=== PATIENT | female | born 1995 | race Hispanic/Latino ===

== ENCOUNTER 2023-06-09 03:47 | Day surgery (SDC) | payer MEDICAID, OTHER ==
[2023-06-09 04:15] VITALS: BMI 27.3
[2023-06-09] MEDS ORDERED: hydrALAZINE 20 MG/ML VIAL SLOW IVP PRN (04:50)
== END 2023-06-09 06:04 | disposition home or self-care (01) ==
LOC: CSHLD/OP 03:47
PROVIDERS: ATTEND Family Medicine
DX: O36.8130 Decreased fetal movements, third trimester, not applicable or unspecified (principal); O99.613 Diseases of the digestive system complicating pregnancy, third trimester; K08.89 Other specified disorders of teeth and supporting structures; Z79.899 Other long term (current) drug therapy; Z3A.34 34 weeks gestation of pregnancy
CPT/HCPCS: 99282

== ENCOUNTER 2023-07-14 21:54 | Day surgery (SDC) | payer OTHER ==
[2023-07-14 22:27] VITALS: BMI 29.2
[2023-07-14] MEDS ORDERED: hydrALAZINE 20 MG/ML VIAL SLOW IVP PRN (22:28)
[2023-07-14] MEDS ORDERED: Promethazine HCl 25 MG/ML VIAL IM SCH (23:15)
[2023-07-14] MEDS ORDERED: Morphine 4 MG/ML VIAL IM SCH (23:15)
[2023-07-14 23:22] LABS: Bilirubin Neg (Negative); Blood, Urine 10 (Negative); Clarity Clear (Clear); Glucose, Urine (Dipstick) Normal (Negative); Ketone, Urine Negative (Negative); Leukocyte Negative (Negative); Nitrite Negative (Negative); Protein, Urine (Dipstick) Negative (Neg-Trace); Urobilinogen Normal mg/dL (Less than 2)
[2023-07-14 23:29] LABS: Bacteria/HPF None Seen HPF (None Seen); CAUTI Indications for Culture Pregnancy; RBC/HPF 0-3 HPF (0-3); Squamous Epithelial 0-3 HPF (0-3); WBC/HPF 0-3 HPF (0-3)
[2023-07-14 23:30] LABS: Urine Culture Reflex Yes Yes
[2023-07-15 00:43] LABS: Albumin 3.2 g/dL (3.5-5.0); Alkaline Phosphatase 129 U/L (40-110); Anion Gap 15 mmol/L (10-20); BUN (Urea Nitrogen) 8 mg/dL (7.0-18.7); Bilirubin, Total 0.3 mg/dL (0.2-1.2); Calc. Creatinine Clearance 184 mL/min (70-130); Calcium 8.7 mg/dL (7.8-10.44); Carbon Dioxide 18 mmol/L (22-29); Chloride 101 mmol/L (98-107); Estimated GFR 132; Globulin 4.9 g/dL (2.4-3.5); Glucose 74 mg/dL (70-105); Potassium 3.7 mmol/L (3.5-5.1); Protein, Total 8.1 g/dL (6.0-8.3); Sodium 130 mmol/L (136-145)
[2023-07-15 01:06] LABS: #Eosinphils 0.1 10x3/uL (0.0-0.5); #Monocytes 0.9 10x3/uL (0.0-1.1); #Neutrophils 7.6 10x3/uL (1.5-8.4); %Basophils 0.2 % (0.0-2.0); %Eosinophils 0.9 % (0.0-6.0); %Lymphocytes 11.2 % (18.0-47.0); %Monocytes 9.2 % (0.0-10.0); %Neutrophils 78.3 % (40.0-75.0); Mean Platelet Volume 11.9 fl (7.4-10.4); Platelet Count 197 10x3/uL (150-450)
[2023-07-15 01:08] LABS: White Blood Cell (WBC) Count 9.7 10x3/uL (3.5-10.5)
[2023-07-15 02:07] LABS: Mean Corpuscular HGB CONC 36.1 g/dL (32.0-36.0); Mean Corpuscular Hemoglobin 31.7 pg (27.0-33.0); Mean Corpuscular Volume 87.8 fl (81.6-98.3)
[2023-07-15 02:14] LABS: Hematocrit 29.4 % (34.9-44.5); Hemoglobin 9.8 g/dL (12.0-15.5)
[2023-07-15 02:26] LABS: AST (SGOT) 13 U/L (5-34)
[2023-07-15 02:50] LABS: ALT (SGPT) 7 U/L (8-55)
== END 2023-07-15 01:35 | disposition home or self-care (01) ==
LOC: CSHLD/OP 21:54
PROVIDERS: ATTEND Family Medicine
DX: O47.1 False labor at or after 37 completed weeks of gestation (principal); O09.893 Supervision of other high risk pregnancies, third trimester; O99.513 Diseases of the respiratory system complicating pregnancy, third trimester; J45.909 Unspecified asthma, uncomplicated; O34.211 Maternal care for low transverse scar from previous cesarean delivery; Z87.59 Personal history of other complications of pregnancy, childbirth and the puerperium; Z3A.38 38 weeks gestation of pregnancy; Z79.899 Other long term (current) drug therapy
CPT/HCPCS: 36415; 80053; 81001; 82570; 84156; 85025; 87086; J2270; J2550

== ENCOUNTER 2023-07-15 11:01 | Inpatient (IN) | payer OTHER ==
[2023-07-15 11:26] VITALS: BMI 29.2
[2023-07-15] MEDS ORDERED: hydrALAZINE 20 MG/ML VIAL SLOW IVP PRN ×3 (12:01→21:38)
[2023-07-15] MEDS ORDERED: Lactated Ringer's 1,000 ML IV SCH ×2 (12:15→14:00)
[2023-07-15] MEDS ORDERED: Cyclobenzaprine 10 MG TAB PO SCH (13:00)
[2023-07-15] MEDS ORDERED: fentaNYL 50 mcg/mL 1 mL Vial SLOW IVP SCH (13:00)
[2023-07-15] MEDS ORDERED: Acetaminophen 500 MG TAB PO PRN (13:54)
[2023-07-15] MEDS ORDERED: Ondansetron PF 4 MG/2 ML Vial IVP PRN ×2 (13:54→16:48)
[2023-07-15] MEDS ORDERED: Methylergonovine 0.2 MG/ML VIAL IM PRN (13:54)
[2023-07-15] MEDS ORDERED: Diphenoxylate HCl/Atropine Tablet PO PRN (13:54)
[2023-07-15] MEDS ORDERED: Promethazine HCl 25 MG/ML VIAL IM PRN ×3 (13:54→21:38)
[2023-07-15] MEDS ORDERED: Tranexamic Acid 1,000 MG/10 ML VIAL IVP PRN (13:54)
[2023-07-15] MEDS ORDERED: Misoprostol 200 MCG TAB PR PRN (13:54)
[2023-07-15] MEDS ORDERED: Carboprost 250 MCG/ML AMP IM PRN (13:54)
[2023-07-15] MEDS ORDERED: NS w/ Oxytocin 30 units 500 ML IV SCH ×2 (14:00→21:38)
[2023-07-15] MEDS: fentaNYL 50 mcg/mL 1 mL Vial SLOW IVP PRN ×2 (14:48→16:52)
[2023-07-15 14:53] LABS: #Eosinphils 0.1 10x3/uL (0.0-0.5); #Monocytes 0.9 10x3/uL (0.0-1.1); #Neutrophils 9.1 10x3/uL (1.5-8.4); %Basophils 0.3 % (0.0-2.0); %Eosinophils 0.5 % (0.0-6.0); %Lymphocytes 8.7 % (18.0-47.0); %Monocytes 7.7 % (0.0-10.0); %Neutrophils 82.3 % (40.0-75.0); Hematocrit 27.5 % (34.9-44.5); Hemoglobin 9.8 g/dL (12.0-15.5); Mean Corpuscular HGB CONC 35.6 g/dL (32.0-36.0); Mean Corpuscular Hemoglobin 29.9 pg (27.0-33.0); Mean Corpuscular Volume 83.8 fl (81.6-98.3); Mean Platelet Volume 12.4 fl (7.4-10.4); Platelet Count 178 10x3/uL (150-450); RBC Distribution Width 14.2 % (11.5-14.5); Red Blood Cell (RBC) Count 3.28 10x6/uL (3.90-5.03); White Blood Cell (WBC) Count 11.1 10x3/uL (3.5-10.5)
[2023-07-15] MEDS ORDERED: Cyclobenzaprine 10 MG TAB PO PRN (15:12)
[2023-07-15 15:26] LABS: HBSAg Index 0.18 S/CO (0-0.99); Hep B Surf Ag - L&D Non-Reactive S/CO (NonReactive); Syphilis Antibody Nonreactive (Nonreactive); Syphilis Antibody Index 0.03 S/CO (<1.00 Non-Reactive)
[2023-07-15 16:00] LABS: ALT (SGPT) 7 U/L (8-55); AST (SGOT) 26 U/L (5-34); Alkaline Phosphatase 132 U/L (40-110); BUN (Urea Nitrogen) 5 mg/dL (7.0-18.7); Bilirubin, Total 0.4 mg/dL (0.2-1.2); Calc. Creatinine Clearance 159 mL/min (70-130); Calcium 8.3 mg/dL (7.8-10.44); Carbon Dioxide Less than 8 mmol/L (22-29); Chloride 106 mmol/L (98-107); Estimated GFR 128; Globulin 3.9 g/dL (2.4-3.5); Glucose 80 mg/dL (70-105); Lipase 77 U/L (8-78); Potassium 4.2 mmol/L (3.5-5.1); Protein, Total 6.9 g/dL (6.0-8.3); Sodium 134 mmol/L (136-145)
[2023-07-15] MEDS ORDERED: diphenhydrAMINE 50 MG/ML VIAL IM PRN (16:48)
[2023-07-15] MEDS ORDERED: FENTANYL 500 MCG/10 ML VIAL 2,000 MCG in Sodium Chloride 0.9% 60 ML IV PRN (16:48)
[2023-07-15] MEDS ORDERED: diphenhydrAMINE 25 MG CAP PO PRN (16:48)
[2023-07-15] MEDS ORDERED: diphenhydrAMINE 50 MG/ML VIAL IVP PRN (16:48)
[2023-07-15] MEDS ORDERED: Naloxone HCl 0.4 mg/ml Vial IV PRN (16:48)
[2023-07-15] MEDS ORDERED: Communication Order-Pharmacy FS PRN (17:00)
[2023-07-15] MEDS ORDERED: Sodium Chloride 0.9% 1,000 ML IV SCH (17:45)
[2023-07-15] MEDS: FENTANYL 500 MCG/10 ML VIAL 1,000 MCG in Sodium Chloride 0.9% 30 ML IV PRN ×2 (17:50→23:10)
[2023-07-15 18:40] LABS: Acetaminophen Less than 10 mcg/mL (10.0-30.0); Alcohol Less than 10.0 mg/dL (Less than 10); Salicylate Less than 8.0 mg/dL (15.0-30.0)
[2023-07-15 19:36] LABS: Bilirubin Neg (Negative); Blood, Urine Negative (Negative); Clarity Clear (Clear); Glucose, Urine (Dipstick) Normal (Negative); Ketone, Urine 15 mg/dL (Negative); Leukocyte Negative (Negative); Nitrite Negative (Negative); Protein, Urine (Dipstick) Negative (Neg-Trace); Urobilinogen Normal mg/dL (Less than 2)
[2023-07-15 19:37] LABS: D-Dimer Test 1.64 mg/L FEU (0.19-0.50); INR-International Normal Ratio 0.9; PTT 25.1 sec (22.0-33.0)
[2023-07-15 19:44] LABS: Amphetamine Not Detected (NotDetected); Barbiturates Screen Not Detected (NotDetected); Benzodiazepine Screen Not Detected (NotDetected); Cocaine Metabolite Screen Not Detected (NotDetected); Methadone Not Detected (NotDetected); Methamphetamine Not Detected (NotDetected); Opiate Screen Detected (NotDetected); Oxycodone Screen Not Detected (NotDetected); Phencyclidine (PCP) Not Detected (NotDetected); THC/Cannabinoid Screen Not Detected (NotDetected); Tricyclic Screen Not Detected (NotDetected)
[2023-07-15] MEDS ORDERED: Dextrose 5% in Water 1,000 ML IV PRN (20:00)
[2023-07-15] MEDS ORDERED: HUMULIN R 100 UNITS in Sodium Chloride 0.9% 100 ML IVPB SCH (20:00)
[2023-07-15] MEDS ORDERED: Glucagon 1 MG/ML KIT IM PRN (20:00)
[2023-07-15] MEDS ORDERED: CEFAZOLIN 2 GM VIAL ONE (20:01)
[2023-07-15] MEDS ORDERED: CCU Insulin Drip FS ONE (20:04)
[2023-07-15 20:06] LABS: Bacteria/HPF None Seen HPF (None Seen); RBC/HPF None Seen HPF (0-3); Squamous Epithelial None Seen HPF (0-3); WBC/HPF None Seen HPF (0-3)
[2023-07-15] MEDS ORDERED: Dextrose 5%-Lactated Ringers 1,000 ML IV SCH (20:15)
[2023-07-15] MEDS ORDERED: Dexamethasone 4 mg/ml Vial ONE (20:16)
[2023-07-15] MEDS ORDERED: Ondansetron PF 4 MG/2 ML Vial ONE (20:16)
[2023-07-15] MEDS ORDERED: Oxytocin 10 UNITS/ML VIAL ONE ×2 (20:17→21:10)
[2023-07-15] MEDS ORDERED: Ketorolac Tromethamine 30 MG/ML VIAL ONE (20:17)
[2023-07-15] MEDS ORDERED: Phenylephrine 40 MG/NS 250 ML 250 ML ONE (20:17)
[2023-07-15] MEDS ORDERED: Morphine PF 10 MG/10 ML VIAL ONE (20:19)
[2023-07-15] MEDS ORDERED: INSULIN REGULAR IN 0.9 % NACL 100 UNITS in Premix Bag 1 BAG IVPB SCH (20:34)
[2023-07-15 20:47] LABS: ALT (SGPT) 7 U/L (8-55); AST (SGOT) 13 U/L (5-34); Albumin 3.2 g/dL (3.5-5.0); Alkaline Phosphatase 134 U/L (40-110); Anion Gap 15 mmol/L (10-20); BUN (Urea Nitrogen) 4 mg/dL (7.0-18.7); Bilirubin, Total 0.5 mg/dL (0.2-1.2); Calc. Creatinine Clearance 174 mL/min (70-130); Calcium 8.2 mg/dL (7.8-10.44); Carbon Dioxide 17 mmol/L (22-29); Chloride 103 mmol/L (98-107); Estimated GFR 130; Globulin 3.4 g/dL (2.4-3.5); Glucose 74 mg/dL (70-105); Lipase 77 U/L (8-78); Potassium 3.4 mmol/L (3.5-5.1); Protein, Total 6.6 g/dL (6.0-8.3); Sodium 132 mmol/L (136-145)
[2023-07-15 20:53] LABS: SARS-CoV-2 NAA Rapid Test Not Detected (NotDetected)
[2023-07-15] MEDS ORDERED: Potassium Chloride 20 MEQ in Premix Bag 1 BAG IVPB SCH (21:00)
[2023-07-15] MEDS ORDERED: diphenhydrAMINE 50 MG/ML VIAL ONE (21:00)
[2023-07-15] MEDS ORDERED: Midazolam HCl 2 mg/2 ml Vial ONE (21:09)
[2023-07-15] MEDS ORDERED: Boostrix 0.5 ML (Tdap) VIAL (>/=7 yrs of age) IM ONE (21:38)
[2023-07-15] MEDS: cefTRIAXone\\ROCEPHIN 2 GM in Sodium Chloride 0.9% 100 ML IVPB SCH (21:40)
[2023-07-15 22:37] LABS: Glucose 165 mg/dL (70-105)
[2023-07-15] MEDS: Dextrose 50% Abboject 50 ML SYRINGE SLOW IVP PRN (22:45)
[2023-07-15] MEDS ORDERED: Docusate 100 MG CAP PO SCH (22:45)
[2023-07-15] MEDS: Docusate 100 MG CAP PO SCH (22:45)
[2023-07-16] MEDS: Dextrose 5 % And 0.9 % NaCl 1,000 ML IV SCH ×4 (00:25→08:30)
[2023-07-16 01:13] LABS: Glucose 65 mg/dL (70-105)
[2023-07-16] MEDS: Dextrose 50% Abboject 50 ML SYRINGE SLOW IVP PRN (01:27)
[2023-07-16] MEDS: Ondansetron PF 4 MG/2 ML Vial IVP PRN ×2 (01:58→05:39)
[2023-07-16 02:20] LABS: Glucose 133 mg/dL (70-105)
[2023-07-16 03:25] LABS: Glucose 112 mg/dL (70-105)
[2023-07-16 03:47] LABS: ALT (SGPT) Less than 7 U/L (8-55); AST (SGOT) 14 U/L (5-34); Albumin 2.5 g/dL (3.5-5.0); Alkaline Phosphatase 104 U/L (40-110); Anion Gap 13 mmol/L (10-20); BUN (Urea Nitrogen) 4 mg/dL (7.0-18.7); Bilirubin, Total 0.3 mg/dL (0.2-1.2); Calc. Creatinine Clearance 180 mL/min (70-130); Calcium 7.7 mg/dL (7.8-10.44); Carbon Dioxide 17 mmol/L (22-29); Chloride 106 mmol/L (98-107); Estimated GFR 132; Globulin 2.6 g/dL (2.4-3.5); Glucose 112 mg/dL (70-105); Lipase 92 U/L (8-78); Magnesium 1.4 mg/dL (1.6-2.6); Potassium 3.7 mmol/L (3.5-5.1); Protein, Total 5.1 g/dL (6.0-8.3); Sodium 132 mmol/L (136-145)
[2023-07-16 03:53] LABS: #Monocytes 1.2 10x3/uL (0.0-1.1); #Neutrophils 10.9 10x3/uL (1.5-8.4); %Basophils 0.2 % (0.0-2.0); %Lymphocytes 7.8 % (18.0-47.0); %Monocytes 9.2 % (0.0-10.0); %Neutrophils 82.2 % (40.0-75.0); Hematocrit 24.2 % (34.9-44.5); Hemoglobin 8.1 g/dL (12.0-15.5); Mean Corpuscular HGB CONC 33.5 g/dL (32.0-36.0); Mean Corpuscular Volume 83.7 fl (81.6-98.3); Mean Platelet Volume 11.9 fl (7.4-10.4); Platelet Count 150 10x3/uL (150-450); RBC Distribution Width 13.9 % (11.5-14.5); Red Blood Cell (RBC) Count 2.89 10x6/uL (3.90-5.03); White Blood Cell (WBC) Count 13.2 10x3/uL (3.5-10.5)
[2023-07-16] MEDS ORDERED: Potassium Phosphate 30 MMOL in Sodium Chloride 0.9% 250 ML 250 ML IVPB SCH (04:00)
[2023-07-16] MEDS ORDERED: Magnesium 2 GM/50 ML(in water) 2 GM in Premix Bag 1 BAG IVPB SCH (04:00)
[2023-07-16 04:01] LABS: Cardiac Risk 20.7 (Less than 4.5); Cholesterol 558 mg/dl (< 200 Desired); HDL Cholesterol 27 mg/dL (>60 Neg Risk)
[2023-07-16 04:10] LABS: Triglycerides 2430 mg/dL (Less than 150)
[2023-07-16 04:22] LABS: Glucose 110 mg/dL (70-105)
[2023-07-16 04:49] LABS: LDL Cholesterol, Calculated 45 mg/dL
[2023-07-16 05:27] LABS: Glucose 101 mg/dL (70-105)
[2023-07-16] MEDS ORDERED: Dextrose 30 ML TUBE PO PRN (06:33)
[2023-07-16 06:57] LABS: Glucose 106 mg/dL (70-105)
[2023-07-16 07:49] LABS: Glucose 103 mg/dL (70-105)
[2023-07-16] MEDS: Docusate 100 MG CAP PO SCH ×2 (08:29→22:07)
[2023-07-16 08:40] LABS: Glucose 92 mg/dL (70-105)
[2023-07-16 09:22] LABS: Glucose 93 mg/dL (70-105)
[2023-07-16] MEDS: FENTANYL 500 MCG/10 ML VIAL 1,000 MCG in Sodium Chloride 0.9% 30 ML IV PRN (09:24)
[2023-07-16 10:13] LABS: Glucose 107 mg/dL (70-105)
[2023-07-16 11:44] LABS: Glucose 95 mg/dL (70-105)
[2023-07-16 12:35] LABS: Glucose 114 mg/dL (70-105)
[2023-07-16] MEDS ORDERED: Ibuprofen 400 MG TAB PO PRN (12:41)
[2023-07-16] MEDS: Sodium Chloride 0.9% 1,000 ML IV SCH ×2 (12:51→18:35)
[2023-07-16] MEDS: Atorvastatin Calcium 40 MG TAB PO SCH (12:52)
[2023-07-16] MEDS ORDERED: Polyethylene Glycol 3350 17 GM Packet PO SCH (13:00)
[2023-07-16 13:22] LABS: HBCM Index 0.05 S/CO (0-0.79); HBSAg Index 0.29 S/CO (0-0.99); Hep A IgM AB Non-Reactive S/CO (NonReactive); Hep A IgM S/CO 0.19 S/CO (0-0.79); Hep B Surf Ag Non-Reactive S/CO (NonReactive); Hep C IgG Ab Non-Reactive S/CO (NonReactive); Hep C Index 0.08 S/CO (0-0.79); Hepatitis B Core IgM Abs Non-Reactive S/CO (NonReactive)
[2023-07-16 13:37] LABS: Glucose 78 mg/dL (70-105)
[2023-07-16] MEDS: Simethicone Chewable 80 MG TAB PO PRN ×2 (16:15→20:28)
[2023-07-16] MEDS: Icosapent Ethyl 1 GM CAPSULE PO SCH (16:15)
[2023-07-16] MEDS: fentaNYL 50 mcg/mL 1 mL Vial SLOW IVP PRN ×2 (16:18→23:46)
[2023-07-16 16:27] LABS: Glucose 72 mg/dL (70-105)
[2023-07-16] MEDS ORDERED: Gemfibrozil 600 MG TAB PO SCH (16:30)
[2023-07-16 16:34] LABS: Cardiac Risk 10.7 (Less than 4.5); Cholesterol 363 mg/dl (< 200 Desired); HDL Cholesterol 34 mg/dL (>60 Neg Risk)
[2023-07-16 16:41] LABS: Triglycerides 991 mg/dL (Less than 150)
[2023-07-16] MEDS ORDERED: HYDROcodone/Acetaminophen 5/325 mg Tablet PO PRN (17:02)
[2023-07-16] MEDS: HYDROcodone/Acetaminophen 5/325 mg Tablet PO PRN (19:48)
[2023-07-16] MEDS: cefTRIAXone\\ROCEPHIN 2 GM in Sodium Chloride 0.9% 100 ML IVPB SCH (20:25)
[2023-07-16] MEDS ORDERED: Meperidine HCl/PF 25 MG/ML VIAL IM PRN (20:46)
[2023-07-16] MEDS ORDERED: Lanolin Ointment 7 GM TUBE TOP PRN (20:46)
[2023-07-16] MEDS: Ibuprofen 800 MG TAB PO SCH (22:07)
[2023-07-17] MEDS: HYDROcodone/Acetaminophen 5/325 mg Tablet PO PRN ×6 (01:17→21:17)
[2023-07-17] MEDS: Sodium Chloride 0.9% 1,000 ML IV SCH ×4 (01:20→18:20)
[2023-07-17] MEDS: Simethicone Chewable 80 MG TAB PO PRN ×5 (01:47→21:16)
[2023-07-17 04:00] LABS: Lipase 66 U/L (8-78)
[2023-07-17 04:16] LABS: Cardiac Risk 10.8 (Less than 4.5); Cholesterol 398 mg/dl (< 200 Desired); HDL Cholesterol 37 mg/dL (>60 Neg Risk)
[2023-07-17 04:58] LABS: Triglycerides 1023 mg/dL (Less than 150)
[2023-07-17] MEDS: Ibuprofen 800 MG TAB PO SCH ×3 (05:10→21:16)
[2023-07-17] MEDS: Polyethylene Glycol 3350 17 GM Packet PO SCH (07:35)
[2023-07-17] MEDS: Docusate 100 MG CAP PO SCH ×2 (07:36→21:16)
[2023-07-17 08:21] LABS: ALT (SGPT) 9 U/L (8-55); AST (SGOT) 22 U/L (5-34); Albumin 2.2 g/dL (3.5-5.0); Alkaline Phosphatase 91 U/L (40-110); Anion Gap 12 mmol/L (10-20); BUN (Urea Nitrogen) Less than 4 mg/dL (7.0-18.7); Bilirubin, Total 0.3 mg/dL (0.2-1.2); Calc. Creatinine Clearance 184 mL/min (70-130); Calcium 7.7 mg/dL (7.8-10.44); Carbon Dioxide 19 mmol/L (22-29); Estimated GFR 132; Globulin 2.2 g/dL (2.4-3.5); Glucose 68 mg/dL (70-105); Protein, Total 4.4 g/dL (6.0-8.3); Triglycerides 925 mg/dL (Less than 150)
[2023-07-17 08:30] LABS: Chloride 111 mmol/L (98-107); Potassium 3.6 mmol/L (3.5-5.1); Sodium 138 mmol/L (136-145)
[2023-07-17] MEDS: Icosapent Ethyl 1 GM CAPSULE PO SCH ×2 (11:10→17:40)
[2023-07-17] MEDS: Atorvastatin Calcium 40 MG TAB PO SCH (13:28)
[2023-07-17] MEDS: Ferrous Sulfate 325 MG TAB PO SCH (21:16)
[2023-07-18] MEDS: HYDROcodone/Acetaminophen 5/325 mg Tablet PO PRN ×5 (01:03→18:02)
[2023-07-18] MEDS: Simethicone Chewable 80 MG TAB PO PRN ×5 (01:03→18:03)
[2023-07-18] MEDS: Ibuprofen 800 MG TAB PO SCH ×2 (05:06→14:00)
[2023-07-18] MEDS: Sodium Chloride 0.9% 1,000 ML IV SCH (07:15)
[2023-07-18 08:14] LABS: ALT (SGPT) 13 U/L (8-55); AST (SGOT) 27 U/L (5-34); Albumin 2.5 g/dL (3.5-5.0); Alkaline Phosphatase 107 U/L (40-110); Anion Gap 15 mmol/L (10-20); BUN (Urea Nitrogen) 5 mg/dL (7.0-18.7); Bilirubin, Total 0.2 mg/dL (0.2-1.2); Calc. Creatinine Clearance 156 mL/min (70-130); Calcium 8.4 mg/dL (7.8-10.44); Carbon Dioxide 22 mmol/L (22-29); Chloride 103 mmol/L (98-107); Estimated GFR 127; Globulin 3.3 g/dL (2.4-3.5); Glucose 72 mg/dL (70-105); Lipase 45 U/L (8-78); Potassium 3.6 mmol/L (3.5-5.1); Protein, Total 5.8 g/dL (6.0-8.3); Sodium 136 mmol/L (136-145)
[2023-07-18] MEDS: Docusate 100 MG CAP PO SCH (09:03)
[2023-07-18] MEDS: Polyethylene Glycol 3350 17 GM Packet PO SCH (09:03)
[2023-07-18] MEDS: Icosapent Ethyl 1 GM CAPSULE PO SCH ×2 (09:04→17:19)
[2023-07-18] MEDS: Ferrous Sulfate 325 MG TAB PO SCH (09:04)
[2023-07-18] MEDS: Atorvastatin Calcium 40 MG TAB PO SCH (13:59)
[2023-07-18 20:36] VITALS: BP 138/68; TEMP 98.5
== END 2023-07-18 21:05 | disposition home or self-care (01) | DRG 786 ==
LOC: CSHLD/OP 11:01 → CSHLD 14:10 → EEVIPCON 14:10 → CSHIMCU 21:49 → CSHANTE 07-16 15:09 → CSHPP 07-16 21:50
PROVIDERS: ADMIT Family Medicine; ATTEND Family Medicine
PROC: 10D00Z1 Extraction of Products of Conception, Low, Open Approach (ICD-10-PCS; principal; 2023-07-15)
DX: O99.62 Diseases of the digestive system complicating childbirth (principal); K85.90 Acute pancreatitis without necrosis or infection, unspecified; E87.1 Hypo-osmolality and hyponatremia; E87.20 Acidosis, unspecified; E87.3 Alkalosis; E78.1 Pure hyperglyceridemia; O99.284 Endocrine, nutritional and metabolic diseases complicating childbirth; Z3A.35 35 weeks gestation of pregnancy; Z37.0 Single live birth; F41.9 Anxiety disorder, unspecified; F32.A Depression, unspecified; O99.344 Other mental disorders complicating childbirth; O34.211 Maternal care for low transverse scar from previous cesarean delivery; J45.20 Mild intermittent asthma, uncomplicated; O99.52 Diseases of the respiratory system complicating childbirth; Z79.899 Other long term (current) drug therapy; D64.9 Anemia, unspecified; O99.02 Anemia complicating childbirth; E78.00 Pure hypercholesterolemia, unspecified; Z20.822 Contact with and (suspected) exposure to COVID-19
CPT/HCPCS: 36415; 36416; 51702; 74176; 74177; 76705; 80053; 80061; 80074; 80306; 80307; 81001; 82570; 83605; 83690; 83735; 84100; 84156; 84478; 85025; 85049; 85300; 85362; 85379; 85384; 85610; 85730; 86140; 86780; 86850; 86900; 86901; 87040; 87086; 87340; 87633; 96372; 99285; J0696; J1100; J1200; J1815; J1885; J2250; J2270; J2274; J2405; J2550; J2590; J3010; J3475; J3480; J3490; J7042; J7050; J7999; U0002